=== PATIENT | female | born 1995 | race Caucasian/White ===

== ENCOUNTER 2019-02-06 14:14 | Emergency (ER) | payer SELFPAY ==
[~2019-02-06] VITALS: Ht 160 cm; Wt 59.1 kg
[2019-02-06 14:24] VITALS: Ht 160 cm; Wt 59.1 kg
[2019-02-06] MEDS ORDERED: BIRTH CONTROL PILL (14:25)
[2019-02-06 15:11] LABS: APPEARANCE HAZY (CLEAR); BILIRUBIN NEGATIVE (NEGATIVE); COLOR YELLOW (YELLOW); GLUCOSE NEGATIVE (NEGATIVE); KETONE MODERATE mg/dL (NEGATIVE); NITRITE POSITIVE (NEGATIVE); PROTEIN TRACE mg/dL (NEGATIVE); SPECIFIC GRAVITY 1.015 (1.005-1.020); UROBILINOGEN NORMAL (NORMAL)
[2019-02-06 15:12] LABS: RED CELLS - URINE 0-5 /hpf (0-5)
[2019-02-06 15:13] LABS: BACTERIA MANY /hpf (NEGATIVE); EPITHELIAL CELLS OCC /hpf (0-5)
[2019-02-06 15:16] LABS: HCG URINE NEGATIVE (NEGATIVE)
[2019-02-06 15:22] LABS: BASOPHILS 0.1 % (0-2); EOSINOPHILS 0.1 % (0-7); HEMATOCRIT 43.5 % (36.0-48.0); IMMATURE GRANULOCYTES 0.2 % (0-5); LYMPHOCYTES 11.4 % (15-50); MCH 30.5 pg (26.0-34.0); MCHC 34.5 g/dL (31.0-37.0); MCV 88.4 fL (80.0-100.0); MONOCYTES 12.6 % (2-11); NEUTROPHILS 75.6 % (40-80); PLATELET COUNT 182 10x3/uL (130-400); RBC 4.92 10x6/uL (4.00-5.40); RDW 11.9 % (11.5-14.5); WBC 12.3 10x3/uL (4.8-10.8)
[2019-02-06 15:32] LABS: CALC OSMOLALITY 270 mosm/kg (275-300); CHLORIDE - SERUM 100 mmol/L (98-107); CREATININE - SERUM 0.8 mg/dL (0.6-1.3); GLUCOSE 102 mg/dL (74-106); POTASSIUM - SERUM 3.5 mmol/L (3.5-5.1); SODIUM 136 mmol/L (136-145); UREA NITROGEN 11 mg/dL (7-18); eGFR NON AFRICAN AMERICAN > 90 mL/min (90-120)
[2019-02-06 15:37] LABS: ALBUMIN 3.6 g/dL (3.4-5.0); ALKALINE PHOSPHATASE 64 U/L (46-116); ALT (SGPT) 15 U/L (10-68); BILIRUBIN - TOTAL 0.64 mg/dL (0.2-1.3); PROTEIN - SERUM 8.1 g/dL (6.4-8.2)
[2019-02-06] MEDS ORDERED: KEFLEX500 MG PO (16:40)
[2019-02-06 17:10] VITALS: BP 116/60
== END 2019-02-06 17:10 | disposition home or self-care (01) ==
LOC: D.ER 14:14
PROVIDERS: Family Medicine
DX: N39.0 Urinary tract infection, site not specified (principal)